=== PATIENT | male | born 1955 | race Caucasian/White ===

== ENCOUNTER → 2020-06-14 | Outpatient (CLI) | payer OTHER ==
[~2020-06-14] MED LIST: BUMETANIDE0.5 MG PO; CLONIDINE1 EAC2 TD; COREG 25MG TAB25 MG PO; COZAAR25 MG PO; ECOTRIN81 MG PO; ELIQUIS 2.5 MG2.5 MG PO; FOLATE PO; GABAPENTIN400 MG PO; GLIMEPIRIDE4 MG PO; HYDRALAZINE HC100 MG PO; JANUVIA100 MG PO; LIPITOR TAB 1010 MG PO; PERCOCET 5/325 T1 EA PO; PERCOCET 7.5-31 EACH PO; PROBIOTIC1 EAC1 PO; RABEPRAZOLE SOD20 MG PO; TRESIBA FL100 UNIT/1 SQ; VITAMIN C1000 MG PO; VITAMIN D21250 MCG PO; VITAMIN D250000 UNIT PO; ZOFRAN ODT 4 MG4 MG PO
== END ==
LOC: HEART 5 10:00
DX: I50.9 Heart failure, unspecified (principal); R06.02 Shortness of breath; R55 Syncope and collapse; I08.8 Other rheumatic multiple valve diseases
CPT/HCPCS: 93306

== ENCOUNTER 2020-07-09 14:44 | Emergency (ER) | payer OTHER ==
[~2020-07-09 14:44] MED LIST changes: -ZOFRAN ODT 4 MG4 MG PO
[2020-07-09 19:53] LABS: HEMOGLOBIN 12.7 gm/dl (14.0-17.5); RED BLOOD COUNT 4.02 M/UL (4.20-5.50); WHITE BLOOD COUNT 9.1 K/UL (4.5-11.0)
[2020-07-09 20:14] LABS: BUN/CREATININE RATIO 19 (0-10)
[2020-07-09] MEDS ORDERED: ZOFRAN ODT 4 MG4 MG PO (23:44)
== END 2020-07-10 00:06 | disposition home or self-care (01) ==
LOC: ER1 14:44
PROVIDERS: Student in an Organized Health Care Education/Training Program
DX: G89.18 Other acute postprocedural pain (principal); R10.9 Unspecified abdominal pain; K91.0 Vomiting following gastrointestinal surgery; R10.816 Epigastric abdominal tenderness; I10 Essential (primary) hypertension; E11.9 Type 2 diabetes mellitus without complications; Z20.822 Contact with and (suspected) exposure to COVID-19; Z88.2 Allergy status to sulfonamides; Z79.82 Long term (current) use of aspirin
CPT/HCPCS: 0240U; 80053; 81001; 82550; 82553; 83605; 83690; 83874; 84484; 85025; 93005; 96374; 96375; 99284; J1885; J2405; Q9967

== ENCOUNTER → 2020-07-11 | Outpatient (CLI) | payer OTHER ==
[~2020-07-11] MED LIST changes: +ZOFRAN ODT 4 MG4 MG PO
== END ==
LOC: HEART 5 11:30
DX: R00.2 Palpitations (principal)